=== PATIENT | female | born 1940 | race Caucasian/White ===

== ENCOUNTER 2016-08-10 10:07 | Observation (INO) ==
--- NOTE | 2016-08-10 10:36 | Emergency Department Note ---
Disposition Clinical Impression: Generalized weakness Pneumonia Qualifiers: Pneumonia type: due to unspecified organism Laterality: right Lung location: upper lobe of lung Qualified Code(s): J18.1 - Lobar pneumonia, unspecified organism Urinary tract infection Qualifiers: Urinary tract infection type: acute cystitis Hematuria presence: with hematuria Qualified Code(s): N30.01 - Acute cystitis with hematuria Disposition: Admitted As Inpatient Condition: Good Referrals: Juan Rojo MD [Primary Care Provider] - Forms: ED Satisfaction Letter Time of Disposition: 12:33 Weakness HPI - General Chief complaint: ED Weakness Stated complaint: Weakness,falls,possible UTI Time Seen by Provider: 08/10/16 10:30 Source: patient, EMS, other Mode of arrival: ambulatory Limitations: physical limitation, age Nursing Notes Reviewed: Yes Vital Signs Reviewed: Yes - History of Present Illness HPI Narrative: 76-year-old white female lives at home with 24-hour caregivers. She ambulates minimally with assistance and a walker. Over the last several days due to weakness she has fallen. No injuries. This morning she could not get up with assistance. EMS was called. She has a history of frequent urinary tract infections. This generally causes problems with weakness. She complained of some abdominal discomfort yesterday, she denies pain today. She denies any injuries from the fall. Pt Subjective Complaint: generalized weakness/fatigue Onset (ago): day(s) Duration: constant (Several) Location: generalized Migration: none Pain Severity: none Pain Scale: 0 Improves with: none Worsens with: movement Context: history of similar Associated symptoms: Reports: denies other symptoms - Related Data Home Medications Medication Instructions Recorded Confirmed Atorvastatin Calcium 10 mg PO DAILY 06/14/16 08/10/16 Baclofen 10 mg PO BID 06/14/16 08/10/16 Darifenacin Hydrobromide [Enablex] 15 mg PO DAILY 06/14/16 08/10/16 Divalproex Sodium [Depakote] 250 mg PO HS 06/14/16 08/10/16 Esomeprazole Magnesium [Nexium] 40 mg PO DAILY 06/14/16 08/10/16 Sertraline [Zoloft] 50 mg PO DAILY 06/14/16 08/10/16 Aspirin [Lo-Dose Aspirin EC] 81 mg PO QAM 08/10/16 08/10/16 Benzonatate [Tessalon] 200 mg PO TID 08/10/16 08/10/16 Calcium Citrate 100 mg PO QAM 08/10/16 08/10/16 Docusate Sodium 100 mg PO QAM 08/10/16 08/10/16 Donepezil HCl [Aricept] 10 mg PO HS 08/10/16 08/10/16 Fluticasone Propionate Nasal 50 mcg NS QAM 08/10/16 08/10/16 [Flonase] Montelukast Sodium [Singulair] 10 mg PO QAM 08/10/16 08/10/16 Polyethylene Glycol 1000 500 gm PO QAM 08/10/16 08/10/16 [Polyethylene Glycol] Allergies Allergy/AdvReac Type Severity Reaction Status Date / Time No Known Allergies Allergy Verified 06/17/16 17:07 All systems ED: reviewed and negative except as stated. Constitutional: Denies: fever, chills ENT ED: Denies: ear pain, throat pain Cardiovascular: Denies: chest pain Respiratory: Reports: cough. Denies: dyspnea, wheezes, sputum production Gastrointestinal: Denies: abdominal pain, nausea, vomiting, diarrhea Genitourinary: Reports: other (Odor to urine). Denies: urgency, dysuria, frequency Integumentary: Denies: rash Neurological: Reports: weakness. Denies: headache, numbness, paresthesias Past Medical History - Past Medical History Medical history: Reports: GERD, hyperlipidemia, hypertension Psychiatric history: Reports: depression BLENDER HELPER history: Reports: no BLENDER HELPER history - Social History Smoking Status: Never smoker Smokeless Tobacco Status: No Alcohol use: Reports: none Drug use: Reports: none Physical Exam - General Limitations: age General appearance: alert, in no apparent distress - Head Head exam: atraumatic, normocephalic - Eye Eye exam: Present: PERRL, EOMI. Absent: scleral icterus, conjunctival injection - ENT ENT exam: normal oropharynx, mucous membranes moist, TM's normal bilaterally - Neck Neck exam: Present: normal inspection, full ROM, trachea midline. Absent: tenderness, lymphadenopathy - Chest Chest inspection: Present: normal inspection, symmetric chest wall rise - Respiratory Respiratory exam: Present: normal lung sounds bilaterally. Absent: respiratory distress, wheezes - Cardiovascular Cardiovascular exam: Present: regular rate, normal rhythm, normal heart sounds - Abdominal Exam Abdominal exam: Present: soft, Non-Tender, normal bowel sounds. Absent: organomegaly, mass - Extremities Exam Extremities exam: Present: normal inspection, full ROM, normal capillary refill. Absent: tenderness, pedal edema, calf tenderness - Neurological Exam Neurological exam: Present: alert, oriented X3, CN II-XII intact. Absent: motor sensory deficit - Psychiatric Psychiatric exam: Present: normal affect, normal mood - Skin Skin exam: Present: warm, dry, intact. Absent: rash, cyanosis, diaphoresis, erythema, pallor Course - Reevaluation(s) Reevaluation #1: Discussed chest x-ray and urinalysis findings consistent with pneumonia and urinalysis. Patient will require hospitalization. The patient is agreeable. I will contact Dr. Pearce. Time: 12:05 Reevaluation #2: Accepted for admission by Dr. Pearce Time: 12:32 Vital Signs Temperature 100.0 F H 08/10/16 10:09 Pulse Rate 65 08/10/16 10:09 Respiratory Rate 13 08/10/16 10:09 Blood Pressure 147/71 08/10/16 10:09 O2 Sat by Pulse Oximetry 93 L 08/10/16 10:09 Temperature 100.0 F H 08/10/16 10:11 Pulse Rate 62 08/10/16 12:18 Respiratory Rate 13 08/10/16 12:18 Blood Pressure 110/85 08/10/16 12:18 O2 Sat by Pulse Oximetry 96 08/10/16 12:18 Oxygen Delivery Oxygen Delivery Nasal Cannula Weakness - Differential Diagnosis Differential Diagnosis: Likely: acute myocardial infarction, anemia, hypoglycemia, sepsis/infection, dehydration, metabolic - Lab Data Lab results reviewed: Yes I reviewed the patient's lab results. Result diagrams: 08/10/16 10:50 08/10/16 10:50 Lab Results 08/10/16 08/10/16 08/10/16 Range/Units 10:46 10:50 10:50 WBC 11.4 H (4.3-11.1) K/mcL RBC 4.68 (3.82-4.97) M/mcL Hgb 13.4 (11.5-15.4) g/dL Hct 41.2 (35.3-44.9) % MCV 88.0 (83.0-100.0) fL MCH 28.6 (28.0-33.3) pg MCHC 32.5 (31.6-35.5) g/dL RDW 14.7 H (11.5-14.5) % Plt Count 179 (140-400) K/mcL MPV 10.5 (9.4-12.4) fL Immature Gran % 0.4 (0-4) % Seg Neutrophils % 81.2 % Lymphocytes % 8.9 % Monocytes % 7.6 % Eosinophils % 1.4 % Basophils % 0.5 % Neutrophils # 9.3 H (1.6-8.9) K/mcL Lymphocytes # 1.0 (0.6-4.6) K/mcL Monocytes # 0.9 (0.0-1.3) K/mcL Eosinophils # 0.2 (0.0-0.6) K/mcL Basophils # 0.1 (0.0-0.2) K/mcL Sodium 140 (136-145) mEq/L Potassium 4.2 (3.5-4.5) mEq/L Chloride 106 (98-109) mEq/L Carbon Dioxide 27 (19-29) mEq/L BUN 19 (7-20) mg/dL Creatinine 0.91 (0.57-1.11) mg/dL Est GFR ( Amer) > 60 (> 60) Est GFR (Non-Af Amer) 60 (> 60) BUN/Creatinine Ratio 21 (6-26) Glucose 110 H (70-99) mg/dL Calculated Osmolality 293 (280-300) Calcium 9.3 (8.6-10.8) mg/dL Total Bilirubin 0.5 (0.2-1.2) mg/dL AST 17 (5-34) Units/L ALT 8 (0-55) Units/L Alkaline Phosphatase 83 (38-126) Units/L Troponin I (0-0.03) ng/mL Serum Total Protein 6.9 (6.0-8.3) g/dL Albumin 3.2 L (3.5-5.0) g/dL Globulin 3.7 H (2.4-3.5) g/dL Albumin/Globulin Ratio 0.9 L (1.1-2.2) Lipase 11 (8-78) Units/L TSH (0.350-4.840) mcIU/mL Urine Color Yellow (Yellow) Urine Clarity Clear (Clear) Urine pH 8.5 H (5.0-8.0) pH Units Ur Specific [place] 1.020 (1.010-1.025) Urine Protein 30 H (Neg-Trace) mg/dL Urine Glucose (UA) Normal (Normal) mg/dL Urine Ketones Negative (Negative) mg/dL Urine Blood Trace-intact H (Negative) Urine Nitrite Negative (Negative) Urine Bilirubin Negative (Negative) Urine Urobilinogen Normal (Normal) mg/dL Ur Leukocyte Esterase Small H (Negative) Urine Microscopic RBC 5-15 H (0-3) per hpf Urine Microscopic WBC 5-15 H (0-3) per hpf Ur Squamous Epith Cells Few (None-Few) per lpf Urine Bacteria Moderate H (None-Few) per hpf Urine Mucus Few (Few) Ur Culture Indicated? YES A (NO) 08/10/16 08/10/16 Range/Units 10:50 10:50 WBC (4.3-11.1) K/mcL RBC (3.82-4.97) M/mcL Hgb (11.5-15.4) g/dL Hct (35.3-44.9) % MCV (83.0-100.0) fL MCH (28.0-33.3) pg MCHC (31.6-35.5) g/dL RDW (11.5-14.5) % Plt Count (140-400) K/mcL MPV (9.4-12.4) fL Immature Gran % (0-4) % Seg Neutrophils % % Lymphocytes % % Monocytes % % Eosinophils % % Basophils % % Neutrophils # (1.6-8.9) K/mcL Lymphocytes # (0.6-4.6) K/mcL Monocytes # (0.0-1.3) K/mcL Eosinophils # (0.0-0.6) K/mcL Basophils # (0.0-0.2) K/mcL Sodium (136-145) mEq/L Potassium (3.5-4.5) mEq/L Chloride (98-109) mEq/L Carbon Dioxide (19-29) mEq/L BUN (7-20) mg/dL Creatinine (0.57-1.11) mg/dL Est GFR ( Amer) (> 60) Est GFR (Non-Af Amer) (> 60) BUN/Creatinine Ratio (6-26) Glucose (70-99) mg/dL Calculated Osmolality (280-300) Calcium (8.6-10.8) mg/dL Total Bilirubin (0.2-1.2) mg/dL AST (5-34) Units/L ALT (0-55) Units/L Alkaline Phosphatase (38-126) Units/L Troponin I 0.00 (0-0.03) ng/mL Serum Total Protein (6.0-8.3) g/dL Albumin (3.5-5.0) g/dL Globulin (2.4-3.5) g/dL Albumin/Globulin Ratio (1.1-2.2) Lipase (8-78) Units/L TSH 0.848 (0.350-4.840) mcIU/mL Urine Color (Yellow) Urine Clarity (Clear) Urine pH (5.0-8.0) pH Units Ur Specific [place] (1.010-1.025) Urine Protein (Neg-Trace) mg/dL Urine Glucose (UA) (Normal) mg/dL Urine Ketones (Negative) mg/dL Urine Blood (Negative) Urine Nitrite (Negative) Urine Bilirubin (Negative) Urine Urobilinogen (Normal) mg/dL Ur Leukocyte Esterase (Negative) Urine Microscopic RBC (0-3) per hpf Urine Microscopic WBC (0-3) per hpf Ur Squamous Epith Cells (None-Few) per lpf Urine Bacteria (None-Few) per hpf Urine Mucus (Few) Ur Culture Indicated? (NO) - Radiology Data Radiology results reviewed: Yes I reviewed the patient's radiology results. ITS Impressions Chest X-Ray 08/10/16 10:37 IMPRESSION: 1. Right upper lobe infiltrate, concerning for pneumonia. 2. There is a linear radiopaque foreign body noted along the right paramidline of the lower chest, overlying the right heart border. This may be external to the patient. Correlate with clinical exam. D/ / 08/10/2016 11:27:28 Manolo Patel MD / Sherry Jeffries Interpreting Provider: Manolo Patel MD - EKG Data EKG attestation: Yes I reviewed and interpreted this EKG. EKG results narrative: Sinus rhythm, rate of 62, nonspecific ST-T changes. Rhythm strip shows sinus rhythm with a rate of 62, first-degree AV block with PA interval 206 ms, QRS is 79 ms with no other ectopy as interpreted by me.
[2016-08-10 10:48] LABS: Bilirubin,Urine Negative (Negative); Blood,Urine Trace-intact (Negative); Clarity,Urine Clear (Clear); Color,Urine Yellow (Yellow); Glucose,Urine (UA) Normal (Normal); Ketones,Urine Negative (Negative); Leukocyte Esterase,Urine Small (Negative); Nitrite,Urine Negative (Negative); PH,Urine 8.5 pH Units (5.0-8.0); Protein,Urine 30 mg/dL (Neg-Trace); Urobilinogen,Urine Normal (Normal)
[2016-08-10 11:00] LABS: Bacteria,Urine Moderate per hpf (None-Few); Mucus,Urine Few (Few); Squamous Epithelial Cell,Urine Few per lpf (None-Few)
[2016-08-10 11:00] LABS: Basophils # 0.1 K/mcL (0.0-0.2); Basophils % 0.5 %; Eosinophils # 0.2 K/mcL (0.0-0.6); Eosinophils % 1.4 %; Hematocrit 41.2 % (35.3-44.9); Hemoglobin 13.4 g/dL (11.5-15.4); Immature Granulocytes % 0.4 % (0-4); Lymphocytes % 8.9 %; Mean Corpuscular HGB Conc 32.5 g/dL (31.6-35.5); Mean Corpuscular Hemoglobin 28.6 pg (28.0-33.3); Mean Platelet Volume 10.5 fL (9.4-12.4); Monocytes # 0.9 K/mcL (0.0-1.3); Monocytes % 7.6 %; Neutrophils # 9.3 K/mcL (1.6-8.9); Platelet Count 179 K/mcL (140-400); Red Blood Count 4.68 M/mcL (3.82-4.97); Red Cell Distribution Width 14.7 % (11.5-14.5); Segmented Neutrophils % 81.2 %
[2016-08-10 11:16] LABS: Alanine Aminotransferase 8 Units/L (0-55); Albumin 3.2 g/dL (3.5-5.0); Albumin/Globulin Ratio 0.9 (1.1-2.2); Alkaline Phosphatase 83 Units/L (38-126); Aspartate Amino Transferase 17 Units/L (5-34); BUN/Creatinine Ratio 21 (6-26); Bilirubin,Total 0.5 mg/dL (0.2-1.2); Blood Urea Nitrogen 19 mg/dL (7-20); Calcium 9.3 mg/dL (8.6-10.8); Carbon Dioxide 27 mEq/L (19-29); Chloride 106 mEq/L (98-109); Globulin 3.7 g/dL (2.4-3.5); Glucose 110 mg/dL (70-99); Lipase 11 Units/L (8-78); Osmolality,Calculated 293 (280-300); Potassium 4.2 mEq/L (3.5-4.5); Sodium 140 mEq/L (136-145); Total Protein 6.9 g/dL (6.0-8.3); eGFR For African Americans > 60 (> 60); eGFR For Non-African Americans 60 (> 60)
[2016-08-10] MEDS ORDERED: Levofloxacin 500 MG/100 ML 500 MG/100 ML BAG IVPB SCH ×2 (13:00→13:19)
[2016-08-10] MEDS ORDERED: Naloxone 0.4 MG/ML INJ IVP PRN (13:19)
--- NOTE | 2016-08-10 15:33 | Internal Med History&Physical ---
Date of Encounter: 08/10/16 Time of Encounter: 15:15 Assessment and Plan (1) Pneumonia Current visit: Yes Status: Acute She has been started on Levaquin by the emergency room physician. I will continue this and add lactobacillus. Qualifiers: Pneumonia type: due to unspecified organism Laterality: right Lung location: upper lobe of lung Qualified Code(s): J18.1 - Lobar pneumonia, unspecified organism (2) Falls Current visit: Yes Status: Acute Will order PT and OT evaluation. Qualifiers: Encounter type: initial encounter Qualified Code(s): W19.XXXA - Unspecified fall, initial encounter (3) Dementia Current visit: Yes Status: Chronic We will order B12 level in a.m. TSH was normal at 0.848 on 08/10/2016. Head CT done March 2013 showed chronic small vessel ischemic disease and left internal capsule infarct Qualifiers: Dementia type: unspecified type Dementia behavioral disturbance: without behavioral disturbance Qualified Code(s): F03.90 - Unspecified dementia without behavioral disturbance (4) Urinary tract infection Current visit: Yes Status: Acute She has been started on Levaquin. I will add lactobacillus. Further workup will be done as needed. Qualifiers: Urinary tract infection type: acute cystitis Hematuria presence: with hematuria Qualified Code(s): N30.01 - Acute cystitis with hematuria Internal Medicine - H&P: HPI Chief complaint: Falls and weakness Admitted From: Home Plans for Post Hospital Care: Home History of present illness: Ms. Jacobs is a 76 year old female came to emergency room stating she had falls and progressive weakness at the halfway. She does not know how long these symptoms have been present. She was evaluated in emergency room and found to have evidence of right lung pneumonia and UTI. She was [facility] to [facility] floor for ongoing care needs. She states she has been a lifelong nonsmoker and denies chronic lung disease. She does not wear oxygen at the halfway. She has not been tested for sleep apnea. She was hospitalized last at [facility] October 2013 with a diagnosis of cough from probable bronchitis. Past Med Surg Social Fam HX - Past Medical History Medical history: GERD, hyperlipidemia, hypertension Psychiatric history: depression - Social History Smoking Status: Never smoker Smokeless Tobacco Status: No Alcohol use: none Drug use: none - Family History Mother Living Status: Father Living Status: Internal Medicine - H&P: Meds Atorvastatin Calcium 10 mg PO DAILY 06/14/16 [History] Baclofen 10 mg PO BID 06/14/16 [History] Darifenacin Hydrobromide [Enablex] 15 mg PO DAILY 06/14/16 [History] Divalproex Sodium [Depakote] 250 mg PO HS 06/14/16 [History] Esomeprazole Magnesium [Nexium] 40 mg PO DAILY 06/14/16 [History] Sertraline [Zoloft] 50 mg PO DAILY 06/14/16 [History] Aspirin [Lo-Dose Aspirin EC] 81 mg PO QAM 08/10/16 [History] Benzonatate [Tessalon] 200 mg PO TID 08/10/16 [History] Calcium Citrate 100 mg PO QAM 08/10/16 [History] Docusate Sodium 100 mg PO QAM 08/10/16 [History] Donepezil HCl [Aricept] 10 mg PO HS 08/10/16 [History] Fluticasone Propionate Nasal [Flonase] 50 mcg NS QAM 08/10/16 [History] Montelukast Sodium [Singulair] 10 mg PO QAM 08/10/16 [History] Polyethylene Glycol 1000 [Polyethylene Glycol] 500 gm PO QAM 08/10/16 [History] Allergies No Known Allergies Allergy (Verified 06/17/16 17:07) All Systems PM: A 10-system review of systems was performed and is negative for pertinent findings except as documented above in the HPI. Review of systems: Gen.: Her weight has been stable at 81 kg since October 2013 hospitalization Cardiovascular: She denies SD hypertension heart failure angina DVT or pulmonary embolus Respiratory: As per history of present illness GI: She has GERD but denies disorders of liver gallbladder or exocrine pancreas : She denies hematuria dysuria or kidney stones. She has a diagnosis of OAB. Neurologic: She has a diagnosis of dementia. She denies large distribution strokes or seizures Endocrine: She denies diabetes or thyroid disease. She has a diagnosis of hyperlipidemia Hematology/oncology: She denies blood disorders cancers or anemia Psychiatric: She has a diagnosis of depression but no known anxiety or other mental health issues Musculoskeletal: She has arthritis and a diagnosis of osteoporosis but no known gout. - Constitutional Vitals: Temp Pulse Resp BP Pulse Ox 98.8 F 72 16 109/63 96 08/10/16 13:31 08/10/16 13:31 08/10/16 13:31 08/10/16 13:31 08/10/16 13:31 Exam: Gen.: She is a well-developed well-nourished female who appears in no severe distress at present time. HEENT: Head is atraumatic and normocephalic. Eyes: EOMI. There is no scleral icterus. Mouth: Mucosa is moist. Neck: Supple and nontender. There is no thyromegaly or adenopathy noted. Heart: Regular without murmurs gallops or ectopics. Lungs: No wheezes or crackles are heard. Abdomen: Soft and nontender. No masses or guarding noted. Extremities: There is no cyanosis edema or clubbing noted. Dorsalis pedis and posttibial pulses are 1-2 over 2 bilaterally. Her feet are warm to touch. She has some wasting of the interosseous muscles of the left hand. Neurologic: Mental status: She is awake but a fair historian. She does not know many answers to her medical history and simply states "I do not know" when asked. Cranial nerves: Smile is symmetric. Forehead wrinkles bilaterally. Tongue protrudes midline. EOMI. Motor: There is no pronator drift. She has difficulty understanding command to flex or extend her ankle against resistance. Cerebellar: Finger to nose is intact bilaterally. Skin: Warm and dry Internal Med - H&P Results - Labs CBC & Chem 7: 08/10/16 10:50 08/10/16 10:50
[2016-08-10] MEDS: Benzonatate 100 MG CAPSULE PO SCH ×2 (16:21→19:58)
[2016-08-10] MEDS: Lactobacillus 1 EACH CAP.SPRINK PO SCH (19:58)
[2016-08-10] MEDS: Baclofen 10 MG TABLET PO SCH (19:58)
[2016-08-10] MEDS: Divalproex (12 HR) 250 MG TABLET PO SCH (19:59)
[2016-08-11 06:22] LABS: Basophils % 0.4 %; Eosinophils # 0.3 K/mcL (0.0-0.6); Eosinophils % 2.5 %; Hematocrit 37.5 % (35.3-44.9); Hemoglobin 12.5 g/dL (11.5-15.4); Immature Granulocytes % 0.4 % (0-4); Lymphocytes # 1.2 K/mcL (0.6-4.6); Lymphocytes % 11.5 %; Mean Corpuscular HGB Conc 33.3 g/dL (31.6-35.5); Mean Corpuscular Hemoglobin 29.2 pg (28.0-33.3); Mean Corpuscular Volume 87.6 fL (83.0-100.0); Mean Platelet Volume 11.1 fL (9.4-12.4); Monocytes % 10.1 %; Neutrophils # 7.5 K/mcL (1.6-8.9); Platelet Count 163 K/mcL (140-400); Red Blood Count 4.28 M/mcL (3.82-4.97); Red Cell Distribution Width 14.8 % (11.5-14.5); Segmented Neutrophils % 75.1 %
[2016-08-11] MEDS: *HR* Enoxaparin 40 MG/0.4 ML SYRINGE SQ SCH (06:33)
[2016-08-11] MEDS: Baclofen 10 MG TABLET PO SCH ×2 (09:52→21:15)
[2016-08-11] MEDS: Lactobacillus 1 EACH CAP.SPRINK PO SCH ×2 (09:52→21:16)
[2016-08-11] MEDS: Aspirin Enteric Coated 81 MG Tablet PO SCH (09:52)
[2016-08-11] MEDS: Benzonatate 100 MG CAPSULE PO SCH (09:53)
[2016-08-11] MEDS: Fluticasone Propionate Nasal 50 MCG/SPRAY BOTTLE NS SCH (09:53)
[2016-08-11] MEDS: Levofloxacin 500 MG/100 ML 500 MG/100 ML BAG IVPB SCH (12:18)
--- NOTE | 2016-08-11 14:49 | Internal Med Progress Note ---
Date of Encounter: 08/11/16 Time of Encounter: 14:40 - Assessment and plan (1) Pneumonia Current Visit: Yes Status: Acute Assessment and plan: August 11. Continue Levaquin and lactobacillus. Qualifiers: Pneumonia type: due to unspecified organism Laterality: right Lung location: upper lobe of lung Qualified Code(s): J18.1 - Lobar pneumonia, unspecified organism (2) Falls Current Visit: Yes Status: Acute Assessment and plan: August 11. Continue therapy with PT and OT Qualifiers: Encounter type: initial encounter Qualified Code(s): W19.XXXA - Unspecified fall, initial encounter (3) Dementia Current Visit: Yes Status: Chronic Assessment and plan: August 11. B12 was normal. Qualifiers: Dementia type: unspecified type Dementia behavioral disturbance: without behavioral disturbance Qualified Code(s): F03.90 - Unspecified dementia without behavioral disturbance (4) Urinary tract infection Current Visit: Yes Status: Acute Assessment and plan: August 11. Continue Levaquin and lactobacillus Qualifiers: Urinary tract infection type: acute cystitis Hematuria presence: with hematuria Qualified Code(s): N30.01 - Acute cystitis with hematuria - Subjective Interval history: August 11. She has no new complaints. She states she wants to go home. She admits she is unable to walk - Constitutional Vitals: Temp Pulse Resp BP Pulse Ox 97.6 F 65 16 109/77 95 08/11/16 14:09 08/11/16 14:09 08/11/16 14:09 08/11/16 14:09 08/11/16 14:09 Exam: She is lying in bed and appears in no acute distress. Her heart is regular without murmurs gallops or ectopics. Lungs are clear anteriorly. Extremities show no pitting edema. I reviewed her medications and lab results. Internal Medicine: Result - Labs CBC & Chem 7: 08/11/16 05:41 08/10/16 10:50 Labs: Short CBC 08/11/16 Range/Units 05:41 WBC 10.0 (4.3-11.1) K/mcL Hgb 12.5 (11.5-15.4) g/dL Hct 37.5 (35.3-44.9) % Plt Count 163 (140-400) K/mcL Neutrophils # 7.5 (1.6-8.9) K/mcL Consult Discharge Plan - Plan Referrals: Juan Rojo MD [Primary Care Provider] - 1 week
--- NOTE | 2016-08-11 19:41 | Electrocardiograph Report ---
[address] [address] Test Date: 2016-08-10 Pat Name: Dolly Jacobs Department: [id number] Room: [facility] Gender: F Pool Hand: : 1940 Requested By: Manolo Luu Order Number: [id number] Reading MD: Andrea King Measurements Intervals [place] Rate: 62 P: 49 LA: 206 QRS: 16 QRSD: 79 T: 39 QT: 406 QTc: 410 Interpretive Statements SINUS RHYTHM NONSPECIFIC T-WAVE ABNORMALITY Electronically Signed On 08-11-2016 19:39:35 EST by Andrea King
[2016-08-11] MEDS: Divalproex (12 HR) 250 MG TABLET PO SCH (21:16)
[2016-08-12] MEDS: *HR* Enoxaparin 40 MG/0.4 ML SYRINGE SQ SCH (06:14)
[2016-08-12] MEDS: Aspirin Enteric Coated 81 MG Tablet PO SCH (07:45)
[2016-08-12] MEDS: Lactobacillus 1 EACH CAP.SPRINK PO SCH ×2 (07:46→21:17)
[2016-08-12] MEDS: Baclofen 10 MG TABLET PO SCH ×2 (07:46→21:17)
[2016-08-12] MEDS: Fluticasone Propionate Nasal 50 MCG/SPRAY BOTTLE NS SCH (07:56)
--- NOTE | 2016-08-12 16:26 | Internal Med Progress Note ---
Date of Encounter: 08/12/16 Time of Encounter: 16:20 - Assessment and plan (1) Pneumonia Current Visit: Yes Status: Acute Assessment and plan: August 11. Continue Levaquin and lactobacillus. Qualifiers: Pneumonia type: due to unspecified organism Laterality: right Lung location: upper lobe of lung Qualified Code(s): J18.1 - Lobar pneumonia, unspecified organism (2) Falls Current Visit: Yes Status: Acute Assessment and plan: August 11. Continue therapy with PT and OT August 12. Continue therapy. agricultural services director has initiated paperwork for placement in SNF for long-term care needs. Qualifiers: Encounter type: initial encounter Qualified Code(s): W19.XXXA - Unspecified fall, initial encounter (3) Dementia Current Visit: Yes Status: Chronic Assessment and plan: August 11. B12 was normal. August 12. Continue Aricept Qualifiers: Dementia type: unspecified type Dementia behavioral disturbance: without behavioral disturbance Qualified Code(s): F03.90 - Unspecified dementia without behavioral disturbance (4) Urinary tract infection Current Visit: Yes Status: Acute Assessment and plan: August 11. Continue Levaquin and lactobacillus Qualifiers: Urinary tract infection type: acute cystitis Hematuria presence: with hematuria Qualified Code(s): N30.01 - Acute cystitis with hematuria - Subjective Interval history: August 11. She has no new complaints. She states she wants to go home. She admits she is unable to walk August 12. She has no new complaints. She denies pain or dyspnea. - Constitutional Vitals: Temp Pulse Resp BP Pulse Ox 99.3 F 70 16 114/79 94 L 08/12/16 12:38 08/12/16 12:38 08/12/16 12:38 08/12/16 12:38 08/12/16 12:38 Exam: She is resting comfortably in bed. She answers my questions appropriately. She does not appear to be in pain. I reviewed her medications and lab results. Internal Medicine: Result - Labs CBC & Chem 7: 08/11/16 05:41 08/10/16 10:50 Consult Discharge Plan - Plan Referrals: Juan Rojo MD [Primary Care Provider] - 1 week
[2016-08-12] MEDS: Levofloxacin 500 MG/100 ML 500 MG/100 ML BAG IVPB SCH (20:04)
[2016-08-12] MEDS: Divalproex (12 HR) 250 MG TABLET PO SCH (21:17)
[2016-08-13] MEDS: *HR* Enoxaparin 40 MG/0.4 ML SYRINGE SQ SCH (05:43)
[2016-08-13] MEDS: Aspirin Enteric Coated 81 MG Tablet PO SCH (08:59)
[2016-08-13] MEDS: Lactobacillus 1 EACH CAP.SPRINK PO SCH ×2 (09:00→23:00)
[2016-08-13] MEDS: Baclofen 10 MG TABLET PO SCH ×2 (09:01→23:00)
[2016-08-13] MEDS: Fluticasone Propionate Nasal 50 MCG/SPRAY BOTTLE NS SCH (09:06)
--- NOTE | 2016-08-13 17:11 | Internal Med Progress Note ---
Date of Encounter: 08/13/16 Time of Encounter: 17:00 - Assessment and plan (1) Pneumonia Current Visit: Yes Status: Acute Assessment and plan: August 11. Continue Levaquin and lactobacillus. Qualifiers: Pneumonia type: due to unspecified organism Laterality: right Lung location: upper lobe of lung Qualified Code(s): J18.1 - Lobar pneumonia, unspecified organism (2) Falls Current Visit: Yes Status: Acute Assessment and plan: August 11. Continue therapy with PT and OT August 12. Continue therapy. guest services director has initiated paperwork for placement in SNF for long-term care needs. August 13. Continue therapy. I explained to her she could not return to the [facility] since she is unable to walk. She understands that SNF placement is the only viable option at this time Qualifiers: Encounter type: initial encounter Qualified Code(s): W19.XXXA - Unspecified fall, initial encounter (3) Dementia Current Visit: Yes Status: Chronic Assessment and plan: August 11. B12 was normal. August 12. Continue Aricept Qualifiers: Dementia type: unspecified type Dementia behavioral disturbance: without behavioral disturbance Qualified Code(s): F03.90 - Unspecified dementia without behavioral disturbance (4) Urinary tract infection Current Visit: Yes Status: Acute Assessment and plan: August 11. Continue Levaquin and lactobacillus Qualifiers: Urinary tract infection type: acute cystitis Hematuria presence: with hematuria Qualified Code(s): N30.01 - Acute cystitis with hematuria - Subjective Interval history: August 11. She has no new complaints. She states she wants to go home. She admits she is unable to walk August 12. She has no new complaints. She denies pain or dyspnea. August 13. She has no new complaints. She states she wants to go home. - Constitutional Vitals: Temp Pulse Resp BP Pulse Ox 98.3 F 56 16 107/56 96 08/13/16 16:23 08/13/16 16:23 08/13/16 16:23 08/13/16 16:23 08/13/16 16:23 Exam: She is resting comfortably in bed and appears in no acute distress. Her affect is bright and cheerful overall. She answers questions appropriately. I reviewed her medications and lab results. Internal Medicine: Result - Labs CBC & Chem 7: 08/11/16 05:41 08/10/16 10:50 Consult Discharge Plan - Plan Referrals: Juan Rojo MD [Primary Care Provider] - 1 week
[2016-08-13] MEDS: Levofloxacin 500 MG/100 ML 500 MG/100 ML BAG IVPB SCH (17:13)
[2016-08-13] MEDS: Divalproex (12 HR) 250 MG TABLET PO SCH (23:01)
[2016-08-14] MEDS: *HR* Enoxaparin 40 MG/0.4 ML SYRINGE SQ SCH (06:17)
[2016-08-14] MEDS: Lactobacillus 1 EACH CAP.SPRINK PO SCH ×2 (08:01→20:02)
[2016-08-14] MEDS: Aspirin Enteric Coated 81 MG Tablet PO SCH (08:01)
[2016-08-14] MEDS: Baclofen 10 MG TABLET PO SCH ×2 (08:01→20:02)
[2016-08-14] MEDS: Fluticasone Propionate Nasal 50 MCG/SPRAY BOTTLE NS SCH (08:02)
--- NOTE | 2016-08-14 11:09 | Internal Med Progress Note ---
Date of Encounter: 08/14/16 Time of Encounter: 11:00 - Assessment and plan (1) Pneumonia Current Visit: Yes Status: Acute Assessment and plan: August 11. Continue Levaquin and lactobacillus. Qualifiers: Pneumonia type: due to unspecified organism Laterality: right Lung location: upper lobe of lung Qualified Code(s): J18.1 - Lobar pneumonia, unspecified organism (2) Falls Current Visit: Yes Status: Acute Assessment and plan: August 11. Continue therapy with PT and OT August 12. Continue therapy. child protective services specialist has initiated paperwork for placement in SNF for long-term care needs. August 13. Continue therapy. I explained to her [facility] to [facility]. She understands that SNF placement is the only viable option at this time Qualifiers: Encounter type: initial encounter Qualified Code(s): W19.XXXA - Unspecified fall, initial encounter (3) Dementia Current Visit: Yes Status: Chronic Assessment and plan: August 11. B12 was normal. August 12. Continue Aricept Qualifiers: Dementia type: unspecified type Dementia behavioral disturbance: without behavioral disturbance Qualified Code(s): F03.90 - Unspecified dementia without behavioral disturbance (4) Urinary tract infection Current Visit: Yes Status: Acute Assessment and plan: August 11. Continue Levaquin and lactobacillus Qualifiers: Urinary tract infection type: acute cystitis Hematuria presence: with hematuria Qualified Code(s): N30.01 - Acute cystitis with hematuria - Subjective Interval history: August 11. She has no new complaints. She states she wants to go home. She admits she is unable to walk August 12. She has no new complaints. She denies pain or dyspnea. August 13. She has no new complaints. She states she wants to go home. August 14. She has no new complaints - Constitutional Vitals: Temp Pulse Resp BP Pulse Ox 98.6 F 0 16 0/0 95 08/14/16 07:14 08/14/16 07:19 08/14/16 07:14 08/14/16 07:19 08/14/16 07:14 Exam: She is resting comfortably in bed. Her affect is bright and cheerful. Heart is regular without murmurs gallops or ectopics. Lungs are clear anteriorly. Extremities show no edema. I reviewed her medications and lab results. Internal Medicine: Result - Labs CBC & Chem 7: 08/11/16 05:41 08/10/16 10:50 Consult Discharge Plan - Plan Referrals: Juan Rojo MD [Primary Care Provider] - 1 week
[2016-08-14] MEDS: Levofloxacin 500 MG/100 ML 500 MG/100 ML BAG IVPB SCH (12:58)
[2016-08-14] MEDS: Divalproex (12 HR) 250 MG TABLET PO SCH (20:02)
[2016-08-15] MEDS: Baclofen 10 MG TABLET PO SCH ×2 (07:53→20:34)
[2016-08-15] MEDS: Aspirin Enteric Coated 81 MG Tablet PO SCH (07:54)
[2016-08-15] MEDS: Lactobacillus 1 EACH CAP.SPRINK PO SCH ×2 (07:55→20:34)
[2016-08-15] MEDS: *HR* Enoxaparin 40 MG/0.4 ML SYRINGE SQ SCH (07:55)
[2016-08-15] MEDS: Fluticasone Propionate Nasal 50 MCG/SPRAY BOTTLE NS SCH (10:44)
[2016-08-15] MEDS: Levofloxacin 500 MG/100 ML 500 MG/100 ML BAG IVPB SCH (12:09)
--- NOTE | 2016-08-15 17:32 | Internal Med Progress Note ---
Date of Encounter: 08/15/16 Time of Encounter: 17:25 - Assessment and plan (1) Pneumonia Current Visit: Yes Status: Acute Assessment and plan: August 11. Continue Levaquin and lactobacillus. August 15. We will discontinue Levaquin and lactobacillus after tomorrow's doses Qualifiers: Pneumonia type: due to unspecified organism Laterality: right Lung location: upper lobe of lung Qualified Code(s): J18.1 - Lobar pneumonia, unspecified organism (2) Falls Current Visit: Yes Status: Acute Assessment and plan: August 11. Continue therapy with PT and OT August 12. Continue therapy. donor services team leader has initiated paperwork for placement in SNF for long-term care needs. August 13. Continue therapy. I explained to her she could not return to the nursing home since she is unable to walk. She understands that SNF placement is the only viable option at this time August 15. Continue therapy. Awaiting evaluation by local agency then state approval for SNF placement Qualifiers: Encounter type: initial encounter Qualified Code(s): W19.XXXA - Unspecified fall, initial encounter (3) Dementia Current Visit: Yes Status: Chronic Assessment and plan: August 11. B12 was normal. August 12. Continue Aricept Qualifiers: Dementia type: unspecified type Dementia behavioral disturbance: without behavioral disturbance Qualified Code(s): F03.90 - Unspecified dementia without behavioral disturbance (4) Urinary tract infection Current Visit: Yes Status: Acute Assessment and plan: August 11. Continue Levaquin and lactobacillus August 15. We will discontinue Levaquin and lactobacillus after tomorrow's doses Qualifiers: Urinary tract infection type: acute cystitis Hematuria presence: with hematuria Qualified Code(s): N30.01 - Acute cystitis with hematuria - Subjective Interval history: August 11. She has no new complaints. She states she wants to go home. She admits she is unable to walk August 12. She has no new complaints. She denies pain or dyspnea. August 13. She has no new complaints. She states she wants to go home. August 14. She has no new complaints August 15. She has no new complaints. - Constitutional Vitals: Temp Pulse Resp BP Pulse Ox 98.6 F 70 18 116/74 95 08/15/16 14:04 08/15/16 14:04 08/15/16 14:04 08/15/16 14:04 08/15/16 14:04 Exam: She is resting comfortably in bed and appears in no acute distress. Her extremities show no edema. I reviewed her medications and lab results. Internal Medicine: Result - Labs CBC & Chem 7: 08/11/16 05:41 08/10/16 10:50 Consult Discharge Plan - Plan Referrals: Juan Rojo MD [Primary Care Provider] - 1 week
[2016-08-15] MEDS: Divalproex (12 HR) 250 MG TABLET PO SCH (20:34)
[2016-08-16] MEDS: *HR* Enoxaparin 40 MG/0.4 ML SYRINGE SQ SCH (06:15)
[2016-08-16] MEDS: Aspirin Enteric Coated 81 MG Tablet PO SCH (08:35)
[2016-08-16] MEDS: Lactobacillus 1 EACH CAP.SPRINK PO SCH (08:35)
[2016-08-16] MEDS: Baclofen 10 MG TABLET PO SCH ×2 (08:36→21:09)
[2016-08-16] MEDS: Fluticasone Propionate Nasal 50 MCG/SPRAY BOTTLE NS SCH ×2 (08:36→08:42)
[2016-08-16] MEDS: Levofloxacin 500 MG/100 ML 500 MG/100 ML BAG IVPB SCH (11:57)
--- NOTE | 2016-08-16 18:14 | Internal Med Progress Note ---
Date of Encounter: 08/16/16 Time of Encounter: 18:00 - Assessment and plan (1) Pneumonia Current Visit: Yes Status: Acute Assessment and plan: August 11. Continue Levaquin and lactobacillus. August 15. We will discontinue Levaquin and lactobacillus after tomorrow's doses August 16. We will discontinue Levaquin and Lactobacillus today Qualifiers: Pneumonia type: due to unspecified organism Laterality: right Lung location: upper lobe of lung Qualified Code(s): J18.1 - Lobar pneumonia, unspecified organism (2) Falls Current Visit: Yes Status: Acute Assessment and plan: August 11. Continue therapy with PT and OT August 12. Continue therapy. child protective services specialist has initiated paperwork for placement in SNF for long-term care needs. August 13. Continue therapy. I explained to her she could not return to the snf since she is unable to walk. She understands that SNF placement is the only viable option at this time August 15. Continue therapy. Awaiting evaluation by local agency then state approval for SNF placement August 16. Continue therapy. Awaiting local agency evaluation to begin SNF placement Qualifiers: Encounter type: initial encounter Qualified Code(s): W19.XXXA - Unspecified fall, initial encounter (3) Dementia Current Visit: Yes Status: Chronic Assessment and plan: August 11. B12 was normal. August 12. Continue Aricept Qualifiers: Dementia type: unspecified type Dementia behavioral disturbance: without behavioral disturbance Qualified Code(s): F03.90 - Unspecified dementia without behavioral disturbance (4) Urinary tract infection Current Visit: Yes Status: Acute Assessment and plan: August 11. Continue Levaquin and lactobacillus August 15. We will discontinue Levaquin and lactobacillus after tomorrow's doses August 16. We will discontinue antibiotics and lactobacillus. Qualifiers: Urinary tract infection type: acute cystitis Hematuria presence: with hematuria Qualified Code(s): N30.01 - Acute cystitis with hematuria - Subjective Interval history: August 11. She has no new complaints. She states she wants to go home. She admits she is unable to walk August 12. She has no new complaints. She denies pain or dyspnea. August 13. She has no new complaints. She states she wants to go home. August 14. She has no new complaints August 15. She has no new complaints. August 16. She has no new complaints. She denies pain or dyspnea - Constitutional Vitals: Temp Pulse Resp BP Pulse Ox 99.0 F 68 17 113/71 95 08/16/16 11:49 08/16/16 11:49 08/16/16 11:49 08/16/16 11:49 08/16/16 11:49 Exam: She is resting comfortably in bed. Heart is regular without murmurs gallops or ectopics. Lungs are clear anteriorly. Extremities show no pitting edema. I reviewed her medications and lab results. Internal Medicine: Result - Labs CBC & Chem 7: 08/11/16 05:41 08/10/16 10:50 Consult Discharge Plan - Plan Referrals: Juan Rojo MD [Primary Care Provider] - 1 week
[2016-08-16] MEDS: Divalproex (12 HR) 250 MG TABLET PO SCH (21:09)
[2016-08-17] MEDS: Baclofen 10 MG TABLET PO SCH ×2 (09:12→20:49)
[2016-08-17] MEDS: Aspirin Enteric Coated 81 MG Tablet PO SCH (09:12)
[2016-08-17] MEDS: *HR* Enoxaparin 40 MG/0.4 ML SYRINGE SQ SCH (09:12)
[2016-08-17] MEDS: Fluticasone Propionate Nasal 50 MCG/SPRAY BOTTLE NS SCH (09:13)
--- NOTE | 2016-08-17 14:57 | Internal Med Progress Note ---
Date of Encounter: 08/17/16 Time of Encounter: 14:50 - Assessment and plan (1) Pneumonia Current Visit: Yes Status: Acute Assessment and plan: August 11. Continue Levaquin and lactobacillus. August 15. We will discontinue Levaquin and lactobacillus after tomorrow's doses August 16. We will discontinue Levaquin and Lactobacillus today Qualifiers: Pneumonia type: due to unspecified organism Laterality: right Lung location: upper lobe of lung Qualified Code(s): J18.1 - Lobar pneumonia, unspecified organism (2) Falls Current Visit: Yes Status: Acute Assessment and plan: August 11. Continue therapy with PT and OT August 12. Continue therapy. patient financial services specialist has initiated paperwork for placement in SNF for long-term care needs. August 13. Continue therapy. I explained to her she could not return to the [facility] since she is unable to walk. She understands that SNF placement is the only viable option at this time August 15. Continue therapy. Awaiting evaluation by local agency then state approval for SNF placement August 16. Continue therapy. Awaiting local agency evaluation to begin SNF placement August 17. Therapy has been discontinued for lack of participation. Qualifiers: Encounter type: initial encounter Qualified Code(s): W19.XXXA - Unspecified fall, initial encounter (3) Dementia Current Visit: Yes Status: Chronic Assessment and plan: August 11. B12 was normal. August 12. Continue Aricept Qualifiers: Dementia type: unspecified type Dementia behavioral disturbance: without behavioral disturbance Qualified Code(s): F03.90 - Unspecified dementia without behavioral disturbance (4) Urinary tract infection Current Visit: Yes Status: Acute Assessment and plan: August 11. Continue Levaquin and lactobacillus August 15. We will discontinue Levaquin and lactobacillus after tomorrow's doses August 16. We will discontinue antibiotics and lactobacillus. Qualifiers: Urinary tract infection type: acute cystitis Hematuria presence: with hematuria Qualified Code(s): N30.01 - Acute cystitis with hematuria - Subjective Interval history: August 11. She has no new complaints. She states she wants to go home. She admits she is unable to walk August 12. She has no new complaints. She denies pain or dyspnea. August 13. She has no new complaints. She states she wants to go home. August 14. She has no new complaints August 15. She has no new complaints. August 16. She has no new complaints. She denies pain or dyspnea August 17. She has no new complaints - Constitutional Vitals: Temp Pulse Resp BP Pulse Ox 98.7 F 88 16 102/57 93 L 08/17/16 12:13 08/17/16 12:13 08/17/16 12:13 08/17/16 12:13 08/17/16 12:13 Exam: She is resting comfortably in bed. Her affect is bright and cheerful. Extremities show no edema. I reviewed her medications and lab results. Internal Medicine: Result - Labs CBC & Chem 7: 08/11/16 05:41 08/10/16 10:50 Consult Discharge Plan - Plan Referrals: Juan Rojo MD [Primary Care Provider] - 1 week
[2016-08-17] MEDS: Divalproex (12 HR) 250 MG TABLET PO SCH (20:49)
[2016-08-18] MEDS: *HR* Enoxaparin 40 MG/0.4 ML SYRINGE SQ SCH (06:42)
[2016-08-18] MEDS: Fluticasone Propionate Nasal 50 MCG/SPRAY BOTTLE NS SCH (08:30)
[2016-08-18] MEDS: Baclofen 10 MG TABLET PO SCH ×2 (08:31→21:49)
[2016-08-18] MEDS: Aspirin Enteric Coated 81 MG Tablet PO SCH (08:31)
--- NOTE | 2016-08-18 17:52 | Internal Med Progress Note ---
Date of Encounter: 08/18/16 Time of Encounter: 17:45 - Assessment and plan (1) Pneumonia Current Visit: Yes Status: Acute Assessment and plan: August 11. Continue Levaquin and lactobacillus. August 15. We will discontinue Levaquin and lactobacillus after tomorrow's doses August 16. We will discontinue Levaquin and Lactobacillus today August 18. Clinically resolved. Qualifiers: Pneumonia type: due to unspecified organism Laterality: right Lung location: upper lobe of lung Qualified Code(s): J18.1 - Lobar pneumonia, unspecified organism (2) Falls Current Visit: Yes Status: Acute Assessment and plan: August 11. Continue therapy with PT and OT August 12. Continue therapy. patient services technician has initiated paperwork for placement in SNF for long-term care needs. August 13. Continue therapy. I explained to her she could not return to the alf since she is unable to walk. She understands that SNF placement is the only viable option at this time August 15. Continue therapy. Awaiting evaluation by local agency then state approval for SNF placement August 16. Continue therapy. Awaiting local agency evaluation to begin SNF placement August 17. Therapy has been discontinued for lack of participation. August 18. Awaiting evaluation for placement in SNF Qualifiers: Encounter type: initial encounter Qualified Code(s): W19.XXXA - Unspecified fall, initial encounter (3) Dementia Current Visit: Yes Status: Chronic Assessment and plan: August 11. B12 was normal. August 12. Continue Aricept Qualifiers: Dementia type: unspecified type Dementia behavioral disturbance: without behavioral disturbance Qualified Code(s): F03.90 - Unspecified dementia without behavioral disturbance (4) Urinary tract infection Current Visit: Yes Status: Acute Assessment and plan: August 11. Continue Levaquin and lactobacillus August 15. We will discontinue Levaquin and lactobacillus after tomorrow's doses August 16. We will discontinue antibiotics and lactobacillus. August 18. Clinically resolved Qualifiers: Urinary tract infection type: acute cystitis Hematuria presence: with hematuria Qualified Code(s): N30.01 - Acute cystitis with hematuria - Subjective Interval history: August 11. She has no new complaints. She states she wants to go home. She admits she is unable to walk August 12. She has no new complaints. She denies pain or dyspnea. August 13. She has no new complaints. She states she wants to go home. August 14. She has no new complaints August 15. She has no new complaints. August 16. She has no new complaints. She denies pain or dyspnea August 17. She has no new complaints August 18. She has no new complaints. She states she wants to go home. - Constitutional Vitals: Temp Pulse Resp BP Pulse Ox 98.1 F 66 16 88/47 92 L 08/18/16 16:25 08/18/16 16:25 08/18/16 16:25 08/18/16 16:25 08/18/16 16:25 Exam: She is resting comfortably in bed and appears in no acute distress. Her affect is cheerful overall. Extremities show no edema. I reviewed her medications and lab results. Internal Medicine: Result - Labs CBC & Chem 7: 08/11/16 05:41 08/10/16 10:50 Consult Discharge Plan - Plan Referrals: Juan Rojo MD [Primary Care Provider] - 1 week
[2016-08-18] MEDS: Divalproex (12 HR) 250 MG TABLET PO SCH (21:48)
[2016-08-19] MEDS: *HR* Enoxaparin 40 MG/0.4 ML SYRINGE SQ SCH (07:22)
[2016-08-19] MEDS: Aspirin Enteric Coated 81 MG Tablet PO SCH (08:17)
[2016-08-19] MEDS: Fluticasone Propionate Nasal 50 MCG/SPRAY BOTTLE NS SCH (08:17)
[2016-08-19] MEDS: Baclofen 10 MG TABLET PO SCH ×2 (08:18→21:42)
--- NOTE | 2016-08-19 14:15 | Internal Med Progress Note ---
Date of Encounter: 08/19/16 Time of Encounter: 14:10 - Assessment and plan (1) Pneumonia Current Visit: Yes Status: Acute Assessment and plan: August 11. Continue Levaquin and lactobacillus. August 15. We will discontinue Levaquin and lactobacillus after tomorrow's doses August 16. We will discontinue Levaquin and Lactobacillus today August 18. Clinically resolved. Qualifiers: Pneumonia type: due to unspecified organism Laterality: right Lung location: upper lobe of lung Qualified Code(s): J18.1 - Lobar pneumonia, unspecified organism (2) Falls Current Visit: Yes Status: Acute Assessment and plan: August 11. Continue therapy with PT and OT August 12. Continue therapy. director water and waste services has initiated paperwork for placement in SNF for long-term care needs. August 13. Continue therapy. I explained to her she [facility] not [facility] since she is unable to walk. She understands that SNF placement is the only viable option at this time August 15. Continue therapy. Awaiting evaluation by local agency then state approval for SNF placement August 16. Continue therapy. Awaiting local agency evaluation to begin SNF placement August 17. Therapy has been discontinued for lack of participation. August 18. Awaiting evaluation for placement in SNF Qualifiers: Encounter type: initial encounter Qualified Code(s): W19.XXXA - Unspecified fall, initial encounter (3) Dementia Current Visit: Yes Status: Chronic Assessment and plan: August 11. B12 was normal. August 12. Continue Aricept Qualifiers: Dementia type: unspecified type Dementia behavioral disturbance: without behavioral disturbance Qualified Code(s): F03.90 - Unspecified dementia without behavioral disturbance (4) Urinary tract infection Current Visit: Yes Status: Acute Assessment and plan: August 11. Continue Levaquin and lactobacillus August 15. We will discontinue Levaquin and lactobacillus after tomorrow's doses August 16. We will discontinue antibiotics and lactobacillus. August 18. Clinically resolved Qualifiers: Urinary tract infection type: acute cystitis Hematuria presence: with hematuria Qualified Code(s): N30.01 - Acute cystitis with hematuria - Subjective Interval history: August 11. She has no new complaints. She states she wants to go home. She admits she is unable to walk August 12. She has no new complaints. She denies pain or dyspnea. August 13. She has no new complaints. She states she wants to go home. August 14. She has no new complaints August 15. She has no new complaints. August 16. She has no new complaints. She denies pain or dyspnea August 17. She has no new complaints August 18. She has no new complaints. She states she wants to go home. August 19. She has no new complaints - Constitutional Vitals: Temp Pulse Resp BP Pulse Ox 98.1 F 69 16 101/60 95 08/19/16 13:42 08/19/16 13:42 08/19/16 13:42 08/19/16 13:42 08/19/16 13:42 Exam: She is resting comfortably in bed. Her affect is bright and cheerful. Her no extremity edema. I reviewed her medications and lab results. Internal Medicine: Result - Labs CBC & Chem 7: 08/11/16 05:41 08/10/16 10:50 Consult Discharge Plan - Plan Referrals: Juan Rojo MD [Primary Care Provider] - 1 week
[2016-08-19] MEDS: Divalproex (12 HR) 250 MG TABLET PO SCH (21:42)
[2016-08-20] MEDS: *HR* Enoxaparin 40 MG/0.4 ML SYRINGE SQ SCH (06:43)
[2016-08-20] MEDS: Baclofen 10 MG TABLET PO SCH ×2 (11:02→20:46)
[2016-08-20] MEDS: Aspirin Enteric Coated 81 MG Tablet PO SCH (11:02)
[2016-08-20] MEDS: Fluticasone Propionate Nasal 50 MCG/SPRAY BOTTLE NS SCH (11:08)
[2016-08-20] MEDS: Divalproex (12 HR) 250 MG TABLET PO SCH (20:46)
[2016-08-21] MEDS: *HR* Enoxaparin 40 MG/0.4 ML SYRINGE SQ SCH (05:56)
[2016-08-21] MEDS: Aspirin Enteric Coated 81 MG Tablet PO SCH (07:58)
[2016-08-21] MEDS: Baclofen 10 MG TABLET PO SCH ×2 (08:00→21:44)
[2016-08-21] MEDS: Fluticasone Propionate Nasal 50 MCG/SPRAY BOTTLE NS SCH (08:02)
[2016-08-21] MEDS ORDERED: Ondansetron ODT 4 MG TAB.RAPDIS SL PRN (09:38)
--- NOTE | 2016-08-21 10:53 | Internal Med Progress Note ---
Date of Encounter: 08/21/16 Time of Encounter: 10:40 - Assessment and plan (1) Pneumonia Current Visit: Yes Status: Acute Assessment and plan: August 11. Continue Levaquin and lactobacillus. August 15. We will discontinue Levaquin and lactobacillus after tomorrow's doses August 16. We will discontinue Levaquin and Lactobacillus today August 18. Clinically resolved. Qualifiers: Pneumonia type: due to unspecified organism Laterality: right Lung location: upper lobe of lung Qualified Code(s): J18.1 - Lobar pneumonia, unspecified organism (2) Falls Current Visit: Yes Status: Acute Assessment and plan: August 11. Continue therapy with PT and OT August 12. Continue therapy. janitorial services supervisor has initiated paperwork for placement in SNF for long-term care needs. August 13. Continue therapy. I explained to her she could not return to the senior living since she is unable to walk. She understands that SNF placement is the only viable option at this time August 15. Continue therapy. Awaiting evaluation by local agency then state approval for SNF placement August 16. Continue therapy. Awaiting local agency evaluation to begin SNF placement August 17. Therapy has been discontinued for lack of participation. August 18. Awaiting evaluation for placement in SNF August 21. She has been able to ambulate with Rollator over the past 2-3 days. Explained to her that her level of function is still too deficient to warrant independent living and I continue to recommend SNF placement. Her evaluation for this has not been done by local agencies. Qualifiers: Encounter type: initial encounter Qualified Code(s): W19.XXXA - Unspecified fall, initial encounter (3) Dementia Current Visit: Yes Status: Chronic Assessment and plan: August 11. B12 was normal. August 12. Continue Aricept Qualifiers: Dementia type: unspecified type Dementia behavioral disturbance: without behavioral disturbance Qualified Code(s): F03.90 - Unspecified dementia without behavioral disturbance (4) Urinary tract infection Current Visit: Yes Status: Acute Assessment and plan: August 11. Continue Levaquin and lactobacillus August 15. We will discontinue Levaquin and lactobacillus after tomorrow's doses August 16. We will discontinue antibiotics and lactobacillus. August 18. Clinically resolved Qualifiers: Urinary tract infection type: acute cystitis Hematuria presence: with hematuria Qualified Code(s): N30.01 - Acute cystitis with hematuria - Subjective Interval history: August 11. She has no new complaints. She states she wants to go home. She admits she is unable to walk August 12. She has no new complaints. She denies pain or dyspnea. August 13. She has no new complaints. She states she wants to go home. August 14. She has no new complaints August 15. She has no new complaints. August 16. She has no new complaints. She denies pain or dyspnea August 17. She has no new complaints August 18. She has no new complaints. She states she wants to go home. August 19. She has no new complaints August 21. She has no new complaints. Nursing staff reported she had an episode of vomiting earlier today. She states she walked in the hallway yesterday with her Rollator walker. - Constitutional Vitals: Temp Pulse Resp BP Pulse Ox 98.6 F 90 18 144/78 93 L 08/21/16 07:43 08/21/16 07:43 08/21/16 07:43 08/21/16 07:43 08/21/16 07:43 Exam: She is resting comfortably in bed. Her affect is bright and cheerful. Reviewed her medications and lab results. Internal Medicine: Result - Labs CBC & Chem 7: 08/11/16 05:41 08/10/16 10:50 Consult Discharge Plan - Plan Referrals: Juan Rojo MD [Primary Care Provider] - 1 week
[2016-08-21] MEDS: Divalproex (12 HR) 250 MG TABLET PO SCH (21:44)
[2016-08-22] MEDS: Fluticasone Propionate Nasal 50 MCG/SPRAY BOTTLE NS SCH (08:20)
[2016-08-22] MEDS: *HR* Enoxaparin 40 MG/0.4 ML SYRINGE SQ SCH (08:20)
[2016-08-22] MEDS: Aspirin Enteric Coated 81 MG Tablet PO SCH (08:21)
[2016-08-22] MEDS: Baclofen 10 MG TABLET PO SCH ×2 (08:21→21:04)
--- NOTE | 2016-08-22 12:26 | Internal Med Progress Note ---
Date of Encounter: 08/22/16 Time of Encounter: 12:20 - Assessment and plan (1) Pneumonia Current Visit: Yes Status: Acute Assessment and plan: August 11. Continue Levaquin and lactobacillus. August 15. We will discontinue Levaquin and lactobacillus after tomorrow's doses August 16. We will discontinue Levaquin and Lactobacillus today August 18. Clinically resolved. Qualifiers: Pneumonia type: due to unspecified organism Laterality: right Lung location: upper lobe of lung Qualified Code(s): J18.1 - Lobar pneumonia, unspecified organism (2) Falls Current Visit: Yes Status: Acute Assessment and plan: August 11. Continue therapy with PT and OT August 12. Continue therapy. health services information specialist has initiated paperwork for placement in SNF for long-term care needs. August 13. Continue therapy. I explained to her she could not return to the long-term since she is unable to walk. She understands that SNF placement is the only viable option at this time August 15. Continue therapy. Awaiting evaluation by local agency then state approval for SNF placement August 16. Continue therapy. Awaiting local agency evaluation to begin SNF placement August 17. Therapy has been discontinued for lack of participation. August 18. Awaiting evaluation for placement in SNF August 21. She has been able to ambulate with Rollator over the past 2-3 days. Explained to her that her level of function is still too deficient to warrant independent living and I continue to recommend SNF placement. Her evaluation for this has not been done by local agencies. Qualifiers: Encounter type: initial encounter Qualified Code(s): W19.XXXA - Unspecified fall, initial encounter (3) Dementia Current Visit: Yes Status: Chronic Assessment and plan: August 11. B12 was normal. August 12. Continue Aricept Qualifiers: Dementia type: unspecified type Dementia behavioral disturbance: without behavioral disturbance Qualified Code(s): F03.90 - Unspecified dementia without behavioral disturbance (4) Urinary tract infection Current Visit: Yes Status: Acute Assessment and plan: August 11. Continue Levaquin and lactobacillus August 15. We will discontinue Levaquin and lactobacillus after tomorrow's doses August 16. We will discontinue antibiotics and lactobacillus. August 18. Clinically resolved Qualifiers: Urinary tract infection type: acute cystitis Hematuria presence: with hematuria Qualified Code(s): N30.01 - Acute cystitis with hematuria - Subjective Interval history: August 11. She has no new complaints. She states she wants to go home. She admits she is unable to walk August 12. She has no new complaints. She denies pain or dyspnea. August 13. She has no new complaints. She states she wants to go home. August 14. She has no new complaints August 15. She has no new complaints. August 16. She has no new complaints. She denies pain or dyspnea August 17. She has no new complaints August 18. She has no new complaints. She states she wants to go home. August 19. She has no new complaints August 21. She has no new complaints. Nursing staff reported she had an episode of vomiting earlier today. She states she walked in the hallway yesterday with her Rollator walker. August 22. She has no new complaints. - Constitutional Vitals: Temp Pulse Resp BP Pulse Ox 98.3 F 80 16 104/67 94 L 08/22/16 10:18 08/22/16 10:18 08/22/16 10:18 08/22/16 10:18 08/22/16 10:18 Exam: She is resting comfortably in bed. Her affect is bright and cheerful. Extremities show no edema. Reviewed her medications and lab results. I explained to her she will need to show she is capable of living independently to avoid placement in a SNF. Internal Medicine: Result - Labs CBC & Chem 7: 08/11/16 05:41 08/10/16 10:50 Consult Discharge Plan - Plan Referrals: Juan Rojo MD [Primary Care Provider] - 1 week
[2016-08-22] MEDS: Divalproex (12 HR) 250 MG TABLET PO SCH (21:04)
[2016-08-23] MEDS: Aspirin Enteric Coated 81 MG Tablet PO SCH (08:15)
[2016-08-23] MEDS: Baclofen 10 MG TABLET PO SCH (08:15)
[2016-08-23] MEDS: *HR* Enoxaparin 40 MG/0.4 ML SYRINGE SQ SCH (08:16)
[2016-08-23 08:21] VITALS: BP 96/53
[2016-08-23] MEDS ORDERED: Nystatin SUSP 5 ML UD.LIQ PO SCH (09:00)
--- NOTE | 2016-08-23 11:42 | Discharge Summary ---
Date of Encounter: 08/23/16 Time of Encounter: 11:30 - Discharge Diagnosis (1) Pneumonia Priority: Primary Status: Resolved Qualifiers: Pneumonia type: due to unspecified organism Laterality: right Lung location: upper lobe of lung Qualified Code(s): J18.1 - Lobar pneumonia, unspecified organism (2) Falls Priority: Secondary Status: Acute Qualifiers: Encounter type: initial encounter Qualified Code(s): W19.XXXA - Unspecified fall, initial encounter (3) Dementia Priority: Secondary Status: Chronic Qualifiers: Dementia type: unspecified type Dementia behavioral disturbance: without behavioral disturbance Qualified Code(s): F03.90 - Unspecified dementia without behavioral disturbance (4) Urinary tract infection Priority: Secondary Status: Resolved Qualifiers: Urinary tract infection type: acute cystitis Hematuria presence: with hematuria Qualified Code(s): N30.01 - Acute cystitis with hematuria - Discharge Medications Home Medications: Baclofen 10 mg PO BID 06/14/16 [History] Darifenacin Hydrobromide [Enablex] 15 mg PO DAILY 06/14/16 [History] Divalproex Sodium [Depakote] 250 mg PO HS 06/14/16 [History] Sertraline [Zoloft] 50 mg PO DAILY 06/14/16 [History] Aspirin [Lo-Dose Aspirin EC] 81 mg PO QAM 08/10/16 [History] Calcium Citrate 100 mg PO QAM 08/10/16 [History] Docusate Sodium 100 mg PO QAM 08/10/16 [History] Donepezil HCl [Aricept] 10 mg PO HS 08/10/16 [History] Fluticasone Propionate Nasal [Flonase] 50 mcg NS QA 08/10/16 [History] Montelukast Sodium [Singulair] 10 mg PO QAM 08/10/16 [History] Polyethylene Glycol 1000 [Polyethylene Glycol] 500 gm PO QAM 08/10/16 [History] Esomeprazole Magnesium [Nexium] 20 mg PO DAILY PRN #0 08/23/16 [Rx] Allergies/Adverse Reactions: Allergies No Known Allergies Allergy (Verified 06/17/16 17:07) Date of admission: 08/10/16 12:42 Primary care physician: Juan Rojo MD Consults: 08/10/16 13:28 Consult to [employer] [CONS] Routine Reason for SW Consult: Discharge planning back to home 08/10/16 15:44 Consult to Occupational Therapy [CONS] Routine Comment: Evaluate, develop and implement POC Consult to Physical Therapy [CONS] Routine Comment: Evaluate, develop and implement POC - Patient Status Disposition: Transfer SNF Condition: Good Functional capacity at discharge: uses cane/walker Overall status at discharge: patient is progressing back to baseline - Discharge Instructions - Diet and Activity Activity: as per physical therapy Diet: regular diet Hospital course: Ms. Jacobs is a 76 year old female who came to emergency room stating she had falls and progressive weakness at the detention. She does not know how long these symptoms have been present. She was evaluated in emergency room and found to have evidence of right lung pneumonia and UTI. She was admitted to [facility] for ongoing care needs. She was placed in observation status. She was started on Levaquin and lactobacillus. The Levaquin was continued through August 16. No organisms were found on urine culture. She remained afebrile and had no residual evidence of infection after discontinuation of Levaquin. Physical therapy and occupational therapy evaluations and ongoing interventions were done. She had marginal cooperation and therapists and was unable to walk satisfactory distance to allow her to return to independent living immediately. Arrangements were completed on August 23 for her to be discharged to [facility] for ongoing rehabilitation therapy. I will follow with her there. - Time Spent with Patient Total time spent providing and/or coordinating discharge services: - Constitutional Vitals: Temp Pulse Resp BP Pulse Ox 97.4 F L 66 16 96/53 93 L 08/23/16 08:21 08/23/16 08:21 08/23/16 08:21 08/23/16 08:21 08/23/16 08:21
--- NOTE | 2016-08-23 11:48 | Physician Discharge Referral ---
ExtendedCare Referral Info Transfer To: [facility] Provider in Charge: Ramses Provider in Charge after Transfer: PCP (Ramses) - Diagnosis (1) Pneumonia Priority: Primary Status: Resolved (2) Falls Priority: Secondary Status: Acute (3) Dementia Priority: Secondary Status: Chronic (4) Urinary tract infection Priority: Secondary Status: Resolved Prognosis: Fair Aware of Diagnosis: Patient Aware of Prognosis: Patient - Transfer Medications Home Medications: Baclofen 10 mg PO BID 06/14/16 [History] Darifenacin Hydrobromide [Enablex] 15 mg PO DAILY 06/14/16 [History] Divalproex Sodium [Depakote] 250 mg PO HS 06/14/16 [History] Sertraline [Zoloft] 50 mg PO DAILY 06/14/16 [History] Aspirin [Lo-Dose Aspirin EC] 81 mg PO QAM 08/10/16 [History] Calcium Citrate 100 mg PO QAM 08/10/16 [History] Docusate Sodium 100 mg PO QAM 08/10/16 [History] Donepezil HCl [Aricept] 10 mg PO HS 08/10/16 [History] Fluticasone Propionate Nasal [Flonase] 50 mcg NS QAM 08/10/16 [History] Montelukast Sodium [Singulair] 10 mg PO QAM 08/10/16 [History] Polyethylene Glycol 1000 [Polyethylene Glycol] 500 gm PO QAM 08/10/16 [History] Esomeprazole Magnesium [Nexium] 20 mg PO DAILY PRN #0 08/23/16 [Rx] Allergies/Adverse Reactions: Allergies No Known Allergies Allergy (Verified 06/17/16 17:07) - Respiratory Orders Smoking Cessation: Smoking cessation has been advised. For more information, call the [place] Tobacco Quit Line at 1-662-EISC-NOW. - Mobility Orders Ambulate - Rehabiliation Orders Rehab Potential: Fair Rehab Orders: Evaluation for Physical Therapy, Evaluation for Occupational Therapy - Diet Orders Regular CERTIFICATION: I certify that the transfer of the above named patient to an Extended Care Facility is necessary for the continuing treatment of the diagnosis listed. The above information is true and accurate reflection of patient's current condition. Confidential - Redisclosure prohibited without a patient's written consent.
== END 2016-08-23 13:00 ==
LOC: EMEROOPIK 10:07 → INPPIK 10:07
PROVIDERS: ADMIT Internal Medicine; ATTEND Internal Medicine